=== PATIENT | female | born 1980 | race Caucasian/White ===

== ENCOUNTER 2019-09-27 19:14 | Emergency (ER) | payer MEDICARE, MEDICAID ==
[2019-09-27 20:31] LABS: ABS Eosinophils 0.1 10^3/ul (0-0.6); ABS Lymphocytes 2.1 10^3/ul (1.0-4.8); ABS Monocytes 0.4 10^3/ul (0-0.8); ABS Neutrophils 3.9 10^3/ul (1.5-7.7); Eosinophil % 1.8 %; Hematocrit 36 % (35-47); Hemoglobin 12.6 g/dL (12.0-16.0); Lymphocyte % 32.3 %; Mean Corpuscular HGB Conc 35 g/dL (31-36); Mean Corpuscular Hemoglobin 31 pg (27-31); Mean Corpuscular Volume 87 fL (80-97); Mean Platelet Volume 8.2 fL (7.4-10.4); Nucleated Red Blood Cells % 0.1; Platelet Count 233 10^3/uL (150-450); Red Cell Distribution Width 14 % (10-15); White Blood Count 6.6 10^3/uL (3.5-10.8)
[2019-09-27 20:35] LABS: INR 1.02 (0.82-1.09)
[2019-09-27 20:47] LABS: Albumin 4.3 g/dL (3.2-5.2); Albumin/Globulin Ratio 1.4 (1-3); EGFR African American 93.1 (>60); EGFR Non-African American 76.9 (>60); Potassium 3.5 mmol/L (3.5-5.0); Total Bilirubin 0.4 mg/dL (0.2-1.0); Total Protein 7.3 g/dL (6.4-8.9)
--- NOTE | 2019-09-27 21:52 | ED ---
HPI Chest Pain - HPI Summary HPI Summary: Patient is a 38 y/o F presenting to the ED for a chief complaint of chest pain on 09/27/19 and throat pain for the last 6 months. Patient believes her chest pain is due to anxiety. She admits using cocaine acquired from a friend around 17:00 on 09/27/19. After using the cocaine, she notes having the chest pain. Currently, patient complains of nasal pain, lesions on her tongue, and a rash on her left hand and left breast. She denies vaginal lesions. Patient is concerned she has an STD, such as syphilis, because she reports having unprotected sex, including oral sex, a few nights ago. Previously, patient was seen by her PCP and prescribed doxycycline without relief. She reports recent stress. She admits tobacco, marijuana, and cocaine use. PMHx is significant for anxiety and substance use for which she takes suboxone. Patient is from [place] and visiting [place]. - History of Current Complaint Chief Complaint: EDChestPainROMI Time Seen by Provider: 09/27/19 21:39 Hx Obtained From: Patient Onset/Duration: Started Minutes Ago, Atraumatic, Still Present Timing: Constant Initial Severity: Moderate Current Severity: Moderate Pain Intensity: 4 Pain Scale Used: 0-10 Numeric Chest Pain Location: Diffuse Chest Pain Radiates: No Aggravating Factor(s): Nothing Alleviating Factor(s): Nothing Associated Signs and Symptoms: Positive: Chest Pain - Additional Pertinent History Primary Care Physician: Ira Mcdowell NP - Allergy/Home Medications Allergies/Adverse Reactions: Allergies Allergy/AdvReac Type Severity Reaction Status Date / Time Sulfa (Sulfonamide Allergy Hives Verified 09/27/19 19:22 Antibiotics) Home Medications: Home Medications Buprenorp/Nalox 8-2 MG FILM [Suboxone] 1 mis SL BID 09/27/19 [History Confirmed 09/27/19] Citalopram Hydrobromide [Celexa] 40 mg PO DAILY 09/27/19 [History Confirmed ] Gabapentin 800 mg PO BID 09/27/19 [History Confirmed 09/27/19] clonazePAM [Clonazepam] 0.5 mg PO TID PRN 09/27/19 [History Confirmed 09/27/19] PMH/Surg Hx/FS Hx/Imm Hx Previously Healthy: Yes Sensory History: Reports: Hx Contacts or Glasses - Pt uses reading glasses Denies: Hx Legally Blind, Hx Deafness Opthamlomology History: Reports: Hx Contacts or Glasses - Pt uses reading glasses Denies: Hx Legally Blind EENT History: Denies: Hx Deafness Psychiatric History: Reports: Hx Anxiety, Hx Depression, Hx Panic Disorder, Hx Inpatient Treatment, Hx Bipolar Disorder, Hx Substance Abuse Denies: Hx Eating Disorder, Hx of Violent Episodes Against Others - Surgical History Surgical History: Yes Surgery Procedure, Year, and Place: Tubal Ligation- 2011. Tonsilectomy- 1994 Hx Anesthesia Reactions: No Infectious Disease History: No Infectious Disease History: Denies: Traveled Outside the [place] in Last 30 Days - Family History Known Family History: Negative: Diabetes, Renal Disease - Social History Occupation: Unemployed Alcohol Use: None Hx Substance Use: Yes Substance Use Type: Reports: Cocaine, Heroin, Marijuana, Prescribed Substance Use Comment - Amount & Last Used: narcotics Hx Tobacco Use: Yes Smoking Status (MU): Heavy Every Day Tobacco Smoker Type: Cigarettes Review of Systems Positive: Other - Positive nasal pain and tongue lesions Positive: Chest Pain Negative: other - Negative vaginal lesions Positive: Rash - Left hand and left breast Positive: Anxious All Other Systems Reviewed And Are Negative: Yes Physical Exam - Summary Physical Exam Summary: Appearance: Well-appearing, Well-nourished, lying in bed comfortably Skin: Warm, dry, no obvious rash Eyes: sclera anicteric, no conjunctival pallor ENT: mucous membranes moist, pharynx appears normal. Marked rhinorrhea and some exudate of the nasal mucosa, aphthous ulcers on the tongue, no lesions on the lips or buccal mucosa Neck: Supple, nontender Respiratory: Clear to auscultation, no signs of respiratory distress Cardiovascular: Normal S1, S2. No murmurs. Normal distal pulses in tibial and radial bilaterally. Abdomen: Soft, nontender, normal active bowel sounds present Musculoskeletal: Normal, Strength/ROM Intact Neurological: A&Ox3, awake and alert, mentation is normal, speech is fluent and appropriate Psychiatric: patient is distraught and tearful, does not seem depressed or delusional. Triage Information Reviewed: Yes Vital Signs On Initial Exam: Initial Vitals Temp Pulse Resp BP Pulse Ox 98.0 F 104 18 150/109 98 09/27/19 19:22 09/27/19 19:22 09/27/19 19:22 09/27/19 19:22 09/27/19 19:22 Vital Signs Reviewed: Yes Procedures - Sedation Patient Received Moderate/Deep Sedation with Procedure: No Diagnostics - Vital Signs Vital Signs Temp Pulse Resp BP Pulse Ox 09/27/19 21:35 75 148/102 99 09/27/19 21:34 72 98 09/27/19 19:22 98.0 F 104 18 150/109 98 - Laboratory Lab Results: Lab Results 09/27/19 09/27/19 09/27/19 Range/Units 20:12 20:12 20:12 WBC 6.6 (3.5-10.8) 10^3/uL RBC 4.10 (3.70-4.87) 10^6 /uL Hgb 12.6 (12.0-16.0) g/dL Hct 36 (35-47) % MCV 87 (80-97) fL MCH 31 (27-31) pg MCHC 35 (31-36) g/dL RDW 14 (10-15) % Plt Count 233 (150-450) 10^3/uL MPV 8.2 (7.4-10.4) fL Neut % (Auto) 58.9 % Lymph % (Auto) 32.3 % [place] % (Auto) 6.3 % Eos % (Auto) 1.8 % Baso % (Auto) 0.7 % Absolute Neuts (auto) 3.9 (1.5-7.7) 10^3/ul Absolute Lymphs (auto) 2.1 (1.0-4.8) 10^3/ul Absolute Monos (auto) 0.4 (0-0.8) 10^3/ul Absolute Eos (auto) 0.1 (0-0.6) 10^3/ul Absolute Basos (auto) 0.0 (0-0.2) 10^3/ul Absolute Nucleated RBC 0.0 10^3/ul Nucleated RBC % 0.1 INR (Anticoag Therapy) 1.02 (0.82-1.09) Sodium 137 (135-145) mmol/L Potassium 3.5 (3.5-5.0) mmol/L Chloride 104 (101-111) mmol/L Carbon Dioxide 25 (22-32) mmol/L Anion Gap 8 (2-11) mmol/L BUN 10 (6-24) mg/dL Creatinine 0.83 (0.51-0.95) mg/dL Est GFR ( Amer) 93.1 (>60) Est GFR (Non-Af Amer) 76.9 (>60) BUN/Creatinine Ratio 12.0 (8-20) Glucose 82 (70-100) mg/dL Calcium 9.0 (8.6-10.3) mg/dL Total Bilirubin 0.40 (0.2-1.0) mg/dL AST 22 (13-39) U/L ALT 17 (7-52) U/L Alkaline Phosphatase 76 (34-104) U/L Troponin I 0.00 (<0.03) ng/mL Total Protein 7.3 (6.4-8.9) g/dL Albumin 4.3 (3.2-5.2) g/dL Globulin 3.0 (2-4) g/dL Albumin/Globulin Ratio 1.4 (1-3) Result Diagrams: 09/27/19 20:12 09/27/19 20:12 Lab Statement: Any lab studies that have been ordered have been reviewed, and results considered in the medical decision making process. - EKG 19:16 Cardiac Rate: Tachycardia - 102 BPM EKG Rhythm: Sinus Tachycardia ST Segment: Normal Ectopy: None Summary of EKG Findings: EKG at 19:16 shows sinus tachycardia with 102 BPM, P waves, QRS complex, and T waves are within normal limits, T waves and intervals are normal, no ischemic changes, no STEMI. This is a normal EKG. Reviewed and interpreted by Dr. Camarillo. Chest Pain Course/Dx - Course Course Of Treatment: Patient is a 38 y/o F presenting to the ED for a chief complaint of chest pain on 09/27/19 and throat pain for the last 6 months. Patient believes her chest pain is due to anxiety. She admits using cocaine acquired from a friend around 17:00 on 09/27/19. After using the cocaine, she notes having the chest pain. Currently, patient complains of nasal pain, lesions on her tongue, and a rash on her left hand and left breast. She denies vaginal lesions. Patient is concerned she has an STD, such as syphilis, because she reports having unprotected sex, including oral sex, a few nights ago. Previously, patient was seen by her PCP and prescribed doxycycline without relief. She reports recent stress. She admits tobacco, marijuana, and cocaine use. PMHx is significant for anxiety and substance use for which she takes suboxone. Patient is from [place] and visiting [place]. On exam, marked rhinorrhea and some exudate of the nasal mucosa, aphthous ulcers on the tongue, no lesions on the lips or buccal mucosa, patient is distraught and tearful, does not seem depressed or delusional. EKG at 19:16 shows sinus tachycardia with 102 BPM, P waves, QRS complex, and T waves are within normal limits, T waves and intervals are normal, no ischemic changes, no STEMI. This is a normal EKG. Laboratory findings are without any significant abnormality. Patient will be discharged with a diagnosis of dysphagia and aphthous ulcers. Follow up with PCP as needed. - Diagnoses Provider Diagnoses: Dysphagia, Aphthous ulcer Discharge ED - Sign-Out/Discharge Documenting (check all that apply): Patient Departure - Discharge - Discharge Plan Condition: Stable Disposition: HOME Patient Education Materials: Canker Sores (ED), Chronic Dysphagia (DC) Referrals: [facility] [Outside] - If Needed Additional Instructions: With respect to the cocaine use and chest pain, your EKG and blood enzyme tests were negative, so no evidence that you caused any damage to the heart. The lesions on your tongue look like aphthous ulcers. These are benign, and should heal spontaneously. Gly-oxide OTC can help speed healing. With respect your chronic intermittent throat pain, I would recommend asking your doctor for a referral to a GI specialist. They would probably want to do an upper endoscopy to diagnose this problem. - Billing Disposition and Condition Condition: STABLE Disposition: Home - Attestation Statements Document Initiated by Fuad: Yes Documenting Scribe: Juliet Frost Provider For Whom Fuad is Documenting (Include Credential): Louis Camarillo MD Scribe Attestation: Juliet Haque scribed for Louis Camarillo MD on 09/28/19 at 0218. Scribe Documentation Reviewed: Yes Provider Attestation: The documentation as recorded by the Juliet marin accurately reflects the service I personally performed and the decisions made by me, Louis Camarillo MD Status of Scribe Document: Viewed
[2019-09-27 22:09] VITALS: BP 129/75
== END 2019-09-27 22:00 | disposition home or self-care (01) ==
LOC: ED 19:14
DX: R13.10 Dysphagia, unspecified (principal); K12.0 Recurrent oral aphthae; F41.9 Anxiety disorder, unspecified; F32.9 Major depressive disorder, single episode, unspecified; F17.210 Nicotine dependence, cigarettes, uncomplicated; Z98.51 Tubal ligation status; Z79.899 Other long term (current) drug therapy; Z88.2 Allergy status to sulfonamides
CPT/HCPCS: 36415; 80053; 84484; 85025; 85610; 93005; 99282